=== PATIENT | male | born 1990 | race Caucasian/White ===

== ENCOUNTER 2017-03-12 22:52 | Emergency (ER) | payer OTHER ==
[2017-03-12 23:32] LABS: ALANINE AMINOTRANSFERASE 66 U/L (21-72); ALBUMIN 4.5 g/dL (3.5-5.0); ALKALINE PHOSPHATASE 56 U/L (38-126); ANION GAP 13 (5-19); ASPARTATE AMINO TRANSFERASE 46 U/L (17-59); BILIRUBIN,DIRECT 0.3 mg/dL (0.0-0.4); BILIRUBIN,TOTAL 0.4 mg/dL (0.2-1.3); BLOOD UREA NITROGEN 8 mg/dL (7-20); CARBON DIOXIDE 22 mmol/L (22-30); CHLORIDE 104 mmol/L (98-107); CREATININE RESULT 0.84 mg/dL (0.52-1.25); GLUCOSE 99 mg/dL (75-110); POTASSIUM 4.3 mmol/L (3.6-5.0); SODIUM 138.9 mmol/L (137-145); TOTAL PROTEIN 7.7 g/dL (6.3-8.2)
[2017-03-12 23:36] LABS: ALCOHOL < 10 mg/dL (NONE DETECTED)
[2017-03-12 23:49] LABS: ABSOLUTE BASOPHILS # (AUTO) 0.1 10^3/uL (0.0-0.2); ABSOLUTE EOSINOPHILS # (AUTO) 0.5 10^3/uL (0.0-0.6); ABSOLUTE LYMPHOCYTES (AUTO) 2.3 10^3/uL (0.5-4.7); ABSOLUTE MONOCYTES (AUTO) 0.8 10^3/uL (0.1-1.4); ABSOLUTE NEUT (AUTO) 5.8 10^3/uL (1.7-8.2); BASOPHILS % (AUTO) 1.3 % (0-2); EOSINOPHILS % (AUTO) 4.9 % (0-6); HEMOGLOBIN 15.8 g/dL (13.5-17.0); HGB HCT DIFFERENCE 0.4; LYMPHOCYTES % (AUTO) 24.2 % (13-45); MEAN CORPUSCULAR HEMOGLOBIN 28.9 pg (27.0-33.4); MEAN CORPUSCULAR HGB CONC 33.6 g/dL (32.0-36.0); MEAN CORPUSCULAR VOLUME 86 fl (80-97); MONOCYTES % (AUTO) 8.4 % (3-13); RED BLOOD COUNT 5.46 10^6/uL (4.35-5.55); RED CELL DISTRIBUTION WIDTH 14.6 % (11.5-14.0); SEGMENTED NEUTROPHILS % (AUTO) 61.2 % (42-78); WHITE BLOOD COUNT 9.5 10^3/uL (4.0-10.5)
[2017-03-13] MEDS ORDERED: DIVALPROEX SODIUM 250 MG TAB.SR.24H PO ONE (00:02)
--- NOTE | 2017-03-13 00:08 | ER Document Report ---
ED General - General Chief Complaint: Probable Seizure Stated Complaint: POSSIBLE SEIZURE Time Seen by Provider: 03/12/17 23:53 Notes: Patient is a 26-year-old male presents with complaint of a seizure. Patient has a history of seizures since infancy. He has been on Dilantin as well as Depakote in the past. He was most recently on Depakote stopped taking because he cannot afford the extended release tablets. He says it has been several months since she has been on this medication. His last seizure before today was in June. He denies any significant headaches. No focal weakness or numbness. No injuries from his seizure. No recent illnesses. No recent trauma to the head. No other complaints at this time. TRAVEL OUTSIDE OF THE [place] IN LAST 30 DAYS: No - Related Data Allergies/Adverse Reactions: No Known Allergies Allergy (Unverified 01/03/16 22:24) Past Medical History - Social History Smoking Status: Unknown if Ever Smoked Frequency of alcohol use: None Drug Abuse: None Family History: Reviewed & Not Pertinent Pulmonary Medical History: Reports: Hx Asthma Neurological Medical History: Reports: Hx Seizures - Immunizations Immunizations up to date: Yes Hx Diphtheria, Pertussis, Tetanus Vaccination: Yes Review of Systems - Review of Systems Notes: My Normal Review Basic REVIEW OF SYSTEMS: CONSTITUTIONAL : Denies fever, chills, or sweats. Denies recent illness. EENT: Denies eye, ear, throat, or mouth pain or symptoms. Denies nasal or sinus congestion. RESPIRATORY: Denies cough, cold, or chest congestion. Denies shortness of breath, difficulty breathing, or wheezing. MUSCULOSKELETAL: Generalized muscle soreness. SKIN: Denies rash or skin lesions. HEMATOLOGIC : Denies easy bruising or bleeding. LYMPHATIC: Denies swollen, enlarged glands. NEUROLOGICAL: Seizure ALL OTHER SYSTEMS REVIEWED AND NEGATIVE. Physical Exam - Vital signs Vitals: Temp Pulse Resp BP Pulse Ox 98.2 F 76 16 100/56 L 95 03/13/17 01:23 03/13/17 01:23 03/13/17 01:23 03/13/17 01:03/13/17 01:23 - Notes Notes: General Appearance: Well nourished, alert, cooperative, no acute distress, no obvious discomfort. Well appearing. Vitals: reviewed, See vital signs table. Head: no swelling or tenderness to the head Eyes: PERRL, EOMI, Conjuctiva clear Mouth: No decreasd moisture Lungs: No wheezing, No rales, No rhonci, No accessory muscle use, good air exchange bilaterally. Heart: Normal rate, Regular rythm, No murmur, no rub Abdomen: Normal BS, soft, No rigidity, No abdominal tenderness, No guarding, no rebound, no abdominal masses, no organomegaly Extremities: strength 5/5 in all extremities, good pulses in all extremities, no swelling or tenderness in the extremities, no edema. Skin: warm, dry, appropriate color, no rash Neuro: speech clear, oriented x 3, normal affect, responds appropriately to questions. Well-appearing. Cranial nerves II through XII are intact. Distal sensation intact. Patient moves all extremities without difficulty. Normal gait. Course - Vital Signs Vital signs: Temp Pulse Resp BP Pulse Ox 98.2 F 76 16 100/56 L 95 03/13/17 01:23 03/13/17 01:23 03/13/17 01:23 03/13/17 01:23 03/13/17 01:23 - Laboratory Result Diagrams: 03/12/17 23:05 03/12/17 23:05 Laboratory results interpreted by me: 03/12/17 23:05 RDW 14.6 H - Transfer of Care Notes: 03/13/17 05:15 Patient has a history of seizure and seizure disorder. He says today seizure is not atypical for him. Seizure lasted approximately 2 minutes and had an appropriate postictal state. Patient will be placed back on Depakote. He is encouraged to take it. Is encouraged to follow-up closely with his neurologist. Is encouraged to return to ER if she feels unwell, has recurrent seizures, or if he has any further concerns. Patient agrees with plan and will be discharged home. Dictation of this chart was performed using voice recognition software; therefore, there may be some unintended grammatical errors. Discharge - Discharge Clinical Impression: Seizure Disposition: HOME, SELF-CARE Additional Instructions: Seizure, Known Epileptic You have had a seizure. Seizures may "break through" in an epileptic due to stress of infection or injury, a change in blood chemistry, or drug and alcohol use. Another common cause is failure to take medication as prescribed. Your doctor has evaluated your situation for the likely cause of this seizure. It is important that you follow his advice concerning any medication changes and follow-up care. Further testing of anti-seizure medication levels in your blood may be necessary. 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 This seizure must be reported to the local intermodal truck driver 's license bureau. Call the doctor or return if seizures recur, or if new or unusual symptoms arise -- such as severe headache, confusion, excessive sleepiness, local weakness or numbness, neck stiffness, or fever. Please return to the ER if you have recurrent seizures, fevers, or feel unwell. Please return to the ER if the seizure medication is making you too sleepy or makes you feel unwell. Prescriptions: Divalproex Sodium 500 mg PO BID #60 Forms: Return to Work
[2017-03-13 05:18] VITALS: BP 111/80
== END 2017-03-13 01:24 | disposition home or self-care (01) ==
LOC: ER 22:52
DX: R56.9 Unspecified convulsions (principal)
CPT/HCPCS: 99284; 36415; 82962; 80307; 83735; 85025; 80053; J3490